=== PATIENT | male | born 1985 | race Two or more races ===

== ENCOUNTER 2019-02-17 16:51 | Emergency (ER) | payer SELFPAY ==
[~2019-02-17] VITALS: Wt 70.3 kg
[~2019-02-17 16:51] MED LIST: AMOX1TAB10 PO; HYDR-3980 PO; NAR2I NS
[2019-02-17] MEDS ORDERED: morphine 4 MG/ML VIAL IV STA ×2 (17:19→17:26)
[2019-02-17] MEDS ORDERED: DIPHTH/TET/ACEL PERTUSS (ADULT) 0.5 ML VIAL IM* ONE (17:30)
[2019-02-17] MEDS ORDERED: CEFAZOLIN 1 GM/50 ML (PMX) 50 ML IVPB SCH (17:30)
[2019-02-17] MEDS ORDERED: SOD CHLORIDE 0.9% 1,000 ML IV ONE (17:30)
[2019-02-17] MEDS ORDERED: ONDANSETRON 4 MG INJ IV STA (17:40)
[2019-02-17] MEDS ORDERED: LIDOCAINE 1% (MDV) 20 ML INJ SC ONE (18:30)
[2019-02-17 19:39] VITALS: BP 145/92; PULSE 89; RESP 18
== END 2019-02-17 19:40 | disposition home or self-care (01) ==
LOC: FTE 16:51
DX: S68.022A Partial traumatic metacarpophalangeal amputation of left thumb, initial encounter (principal); M79.642 Pain in left hand; W27.0XXA Contact with workbench tool, initial encounter; Y92.9 Unspecified place or not applicable; Z23 Encounter for immunization
CPT/HCPCS: 12001; 73130; 80053; 85025; 85610; 85730; 90715; J0690; J2270; J2405; J7030; 90471; 96374; 96375; 96376